=== PATIENT | male | born 1950 | race Two or more races ===

== ENCOUNTER 2023-09-06 07:26 | Outpatient (CLI) | payer OTHER | END 2023-09-06 07:32 | disposition home or self-care (01) | LOC: NUCLEAR 07:26 | PROVIDERS: ATTEND Specialist | DX: I11.9 Hypertensive heart disease without heart failure (principal); I25.9 Chronic ischemic heart disease, unspecified; E78.5 Hyperlipidemia, unspecified | CPT/HCPCS: 78452; 93017; A9500 ==